=== PATIENT | male | born 1965 | race Two or more races ===

== ENCOUNTER 2017-07-05 17:30 | Emergency (ER) | payer OTHER ==
[~2017-07-05] VITALS: Ht 167.6 cm; Wt 97.5 kg
[2017-07-05 18:03] VITALS: BP 131/84
--- NOTE | 2017-07-05 18:04 | Emergency Room Report ---
History of Present Illness General Chief Complaint: Multiple Trauma/Fall Source: Patient Present Illness HPI Patient presents after a fall from a ladder Approximately 5 feet high Patient was doing scaffolding on the ceiling Essentially lost his balance was falling backwards He recalls hitting his head However did have lapse of consciousness for a few seconds He recalls hitting the toilet with his back Denies any chest pain Has pain to the upper trapezius area mid back and lower back Denies any focal weakness Also complains of pain to bilateral hand and right ankle Allergies: Coded Allergies: No Known Allergies (Unverified , 07/05/17) Patient History Past Medical History: see triage record Pertinent Family History: none Reviewed Nursing Documentation: PMH: Agreed; PSxH: Agreed Nursing Documentation-PMH Past Medical History: No Stated History Review of Systems All Other Systems: negative except mentioned in HPI Physical Exam Vital Signs Date Time Temp Pulse Resp B/P (MAP) Pulse Ox O2 Delivery O2 Flow Rate FiO2 07/05/17 17:40 98.2 85 16 131/84 97 Room Air 98.2 Sp02 EP Interpretation: reviewed, normal General Appearance: well appearing, no apparent distress Head: normocephalic, atraumatic Eyes: bilateral eye PERRL, bilateral eye EOMI ENT: hearing grossly normal, normal pharynx, TMs + canals normal, uvula midline Neck: full range of motion, supple, no meningismus, no bony tend Respiratory: lungs clear, normal breath sounds, no rhonchi, no respiratory distress, no retraction, no accessory muscle use Cardiovascular #1: normal peripheral pulses, regular rate, rhythm, no edema, no gallop, no JVD, no murmur Gastrointestinal: normal bowel sounds, non tender, soft, no mass, no organomegaly, non-distended, no guarding, no hernia, no pulsatile mass, no rebound Genitourinary: no CVA tenderness Musculoskeletal: other - Mild discomfort palpated [id number] paraspinal, thoracic spine 4, 5 paraspinal no midline discomfort or step-off. 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, mild discomfort palpated to the right lateral ankle however no swelling, Neurologic: oriented x3, responsive, boarding specialist III-XII nml as tested, motor strength/ tone normal, sensory intact Psychiatric: mood/affect normal Skin: normal color, no rash, warm/dry, palpation normal Lymphatic: normal inspection, no adenopathy Medical Decision Making Diagnostic Impression: Primary Impression: Back contusion Additional Impression: Contusion, back ER Course Given the patient's presentation and history imaging studies are obtained patient was provided with pain medication No obvious signs of acute fracture Patient has done better with medicine here in the ER and is stable for initial conservative outpatient trial Other X-Ray Diagnostic Results Other X-Ray Diagnostic Results #1: X-Ray ordered: Thoracic spine # of Views/Limited Vs Complete: 2 View Indication: Pain EP Interpretation: Yes Interpretation: no dislocation, no soft tissue swelling, no fractures Impression: No acute disease Electronically Signed by: Aaron Gutierrez DO Other X-Ray Diagnostic Results #2: X-Ray ordered: L-spine # of Views/Limited Vs Complete: 4 View Indication: Pain EP Interpretation: Yes Interpretation: no dislocation, no soft tissue swelling, no fractures Impression: No acute disease Electronically Signed by: Aaron Gutierrez DO Last Vital Signs Date Time Temp Pulse Resp B/P (MAP) Pulse Ox O2 Delivery O2 Flow Rate FiO2 07/05/17 17:40 98.2 85 16 131/84 97 Room Air 98.2 Status: improved Disposition: HOME, SELF-CARE Condition: Improved Scripts Methocarbamol* (ROBAXIN-750*) 750 Mg Tablet 750 MG PO TID, #21 TAB 0 Refills Prov: Aaron Gutierrez DO 07/05/17 Ibuprofen* (MOTRIN*) 600 Mg Tablet 600 MG ORAL Q8H PRN for For Pain, #20 TAB 0 Refills Prov: Aaron Gutierrez DO 07/05/17 Additional Instructions: Patient is provided with the discharge instructions notified to follow up with primary doctor in the next 2-3 days otherwise return to the er with any worsening symptoms. Please note that this report is being documented using [employer] technology. This can lead to erroneous entry secondary to incorrect interpretation by the dictating instrument. Aaron Gutierrez DO Jul 05, 2017 18:04
[2017-07-05] MEDS ORDERED: IBUPROFEN600 MG ORAL (18:49)
[2017-07-05] MEDS ORDERED: ROBAXIN-750750 MG PO (18:49)
[2017-07-05 19:24] VITALS: BP 136/77
--- NOTE | 2017-07-06 10:53 | Diagnostic Imaging Report ---
. Indication: Pain status post fall Technique: XRAY L Spine Ltd Comparison: None Findings: There are 5 nonrib-bearing lumbar-type vertebral bodies. Vertebral body heights are preserved; no compression fracture. No additional acute fracture identified. There are degenerative changes of the spine with osteophytes, facet arthropathy and disc space narrowing. These findings are most pronounced at L4-L5 and L5-S1. Symphysis pubis, bilateral hip joints and sacroiliac joints are preserved. Bowel gas pattern unremarkable. IMPRESSION: No evidence of acute fracture or traumatic malalignment. Degenerative change of the spine, most pronounced at L5-S1.
--- NOTE | 2017-07-06 10:59 | Diagnostic Imaging Report ---
Indication: Pain, post fall Technique: XRAY T Spine 2v Comparison: None Findings: There are multilevel degenerative changes in the spine. No evidence to suggest acute fracture. No evidence of compression deformity. There is a linear calcification in the posterior soft tissues of uncertain etiology. It appears chronic in nature as it well-circumscribed. Imaged lungs are grossly clear. Costophrenic clips noted in the right upper quadrant. IMPRESSION: Multilevel degenerative change. No evidence to suggest acute fracture or traumatic malalignment.
== END 2017-07-05 19:20 | disposition home or self-care (01) ==
LOC: EMR 18:30
DX: S30.0XXA Contusion of lower back and pelvis, initial encounter (principal); S20.229A Contusion of unspecified back wall of thorax, initial encounter; W11.XXXA Fall on and from ladder, initial encounter; Y92.009 Unspecified place in unspecified non-institutional (private) residence as the place of occurrence of the external cause
CPT/HCPCS: 72020; 72070; 99284